=== PATIENT | male | born 1990 | race African-American/Black ===

== ENCOUNTER 2019-12-19 18:06 | Inpatient (IN) | payer OTHER ==
[~2019-12-19] VITALS: Ht 182.9 cm; Wt 68.6 kg
[~2019-12-19 18:06] MED LIST: ALBU6.7H IH
[2019-12-19] MEDS ORDERED: D AM PO (18:35)
[2019-12-19] MEDS ORDERED: ALPR-340 PO (18:35)
[2019-12-19] MEDS ORDERED: ACETAMINOPHEN 325 MG TABLET PO PRN (18:45)
[2019-12-19] MEDS ORDERED: ONDANSETRON HCL 4 MG/2 ML VIAL IVP PRN (18:45)
[2019-12-19 18:52] LABS: BASOPHILS % (AUTO) 0.4 % (0.0-2.0); EOSINOPHILS % (AUTO) 0.6 % (1.0-6.0); HEMATOCRIT 42.4 % (41-53); HEMOGLOBIN 13.9 g/dL (13.5-17.5); LYMPHOCYTES # (AUTO) 1.2 K/uL (1.0-4.8); LYMPHOCYTES % (AUTO) 14.8 % (22.0-44.0); MEAN CORPUSCULAR HEMOGLOBIN 28.2 pg (26.0-34.0); MEAN CORPUSCULAR HGB CONC 32.8 G/dL (31.0-37.0); MEAN CORPUSCULAR VOLUME 86 fL (80-100); MONOCYTES # (AUTO) 0.5 K/uL (0.1-1.0); MONOCYTES % (AUTO) 6.1 % (2.0-9.0); NEUTROPHILS # (AUTO) 6.1 K/uL (1.8-7.7); NEUTROPHILS % (AUTO) 78.1 % (40.0-70.0); PLATELET COUNT (AUTO) 279 K/uL (150-450); RED BLOOD CELL COUNT(AUTO) 4.93 MIL/uL (4.50-5.90); RED CELL DISTRIBUTION WIDTH 12.9 % (11.5-14.5)
[2019-12-19 19:01] LABS: ANION GAP 7 mmol/L (8-16); CALCIUM, TOTAL 9.2 mg/dL (8.8-10.5); CARBON DIOXIDE 30 mmol/L (22-29); CHLORIDE 102 mmol/L (98-107); CREATININE 0.95 mg/dL (0.60-1.30); GLOMERULAR FILTR. RATE CALC > 60 mL/min (>60); GLUCOSE,RANDOM 87 mg/dL (70-110); POTASSIUM 4.4 mmol/L (3.5-5.1); SODIUM SERUM 139 mmol/L (136-145); UREA NITROGEN, BLOOD 12 mg/dL (7-18)
[2019-12-19 19:12] LABS: ALANINE AMINOTRANSFERASE 18 U/L (12-78); ALBUMIN 4.2 g/dL (3.4-5.0); ALKALINE PHOSPHATASE 73 U/L (46-116); ASPARTATE AMINOTRANSFERASE 14 U/L (15-37); BILIRUBIN,TOTAL 0.3 mg/dL (0.1-1.0); TOTAL PROTEIN, SERUM 7.7 g/dL (6.4-8.2)
[2019-12-19 20:03] LABS: AMPHET/METH SCREEN,URINE NEGATIVE (NEGATIVE); BARBITURATE SCREEN, URINE NEGATIVE (NEGATIVE); BENZODIAZEPINES SCREEN,URINE POSITIVE (NEGATIVE); CANNABINOID SCREEN,URINE NEGATIVE (NEGATIVE); COCAINE SCREEN,URINE NEGATIVE (NEGATIVE); METHADONE SCREEN, URINE NEGATIVE (NEGATIVE); OPIATE SCREEN,URINE POSITIVE (NEGATIVE)
[2019-12-19 20:04] LABS: PHENCYCLIDINE SCREEN,URINE NEGATIVE (NEGATIVE)
[2019-12-19 20:35] VITALS: BP 103/55
[2019-12-19] MEDS ORDERED: LOPERAMIDE HCL 2 MG CAPSULE PO PRN (23:00)
[2019-12-19] MEDS ORDERED: DICYCLOMINE HCL 10 MG CAPSULE PO PRN (23:00)
[2019-12-19] MEDS ORDERED: METOCLOPRAMIDE HCL 5 MG/ML 2 ML VIAL IVP PRN (23:00)
[2019-12-19] MEDS: CYCLOBENZAPRINE HCL 10 MG TABLET PO PRN (23:43)
[2019-12-20 04:05] VITALS: BP 107/60
[2019-12-20 08:00] VITALS: BP 104/59
[2019-12-20 08:08] VITALS: BP 104/59
[2019-12-20] MEDS ORDERED: ChlordiazePOXIDE HCL 10 MG CAPSULE PO SCH (09:00)
[2019-12-20] MEDS ORDERED: DIAZEPAM 10 MG TABLET PO PRN (11:30)
[2019-12-20 12:00] VITALS: BP 102/56
[2019-12-20] MEDS: CYCLOBENZAPRINE HCL 10 MG TABLET PO PRN (15:14)
[2019-12-20 15:40] VITALS: BP 99/53
[2019-12-20 19:33] VITALS: BP 103/57
[2019-12-20] MEDS: TEMAZEPAM 15 MG CAPSULE PO SCH (21:51)
[2019-12-21 04:39] VITALS: BP 103/58
[2019-12-21] MEDS ORDERED: DIAZEPAM 10 MG TABLET PO PRN (07:00)
[2019-12-21] MEDS ORDERED: DIAZEPAM 10 MG TABLET PO SCH (09:00)
[2019-12-21] MEDS: DIAZEPAM 5 MG TABLET PO PRN ×2 (09:46→21:22)
[2019-12-21 19:34] VITALS: BP 108/52
[2019-12-21 21:20] VITALS: BP 118/68
[2019-12-21] MEDS: ACETAMINOPHEN/CODEINE 300-15 MG TABLET PO PRN (21:22)
[2019-12-21] MEDS: TEMAZEPAM 15 MG CAPSULE PO SCH (21:53)
[2019-12-21 22:20] VITALS: BP 116/68
[2019-12-22 04:43] VITALS: BP 134/86
[2019-12-22 07:52] VITALS: BP 101/55
[2019-12-22] MEDS: DIAZEPAM 5 MG TABLET PO PRN ×2 (08:45→18:41)
[2019-12-22] MEDS: ACETAMINOPHEN/CODEINE 300-15 MG TABLET PO PRN (14:48)
[2019-12-22 15:23] VITALS: BP 102/60
[2019-12-22 20:27] VITALS: BP 103/70
[2019-12-22] MEDS: TEMAZEPAM 15 MG CAPSULE PO SCH (23:10)
[2019-12-23 05:30] VITALS: BP 100/57
[2019-12-23] MEDS ORDERED: DIAZEPAM 5 MG TABLET PO PRN (07:00)
[2019-12-23 07:38] VITALS: BP 115/61
[2019-12-23] MEDS ORDERED: DIAZEPAM 5 MG TABLET PO SCH (09:00)
[2019-12-23 09:23] LABS: BASOPHILS % (AUTO) 0.4 % (0.0-2.0); EOSINOPHILS % (AUTO) 0 % (1.0-6.0); HEMATOCRIT 42.8 % (41-53); HEMOGLOBIN 14.1 g/dL (13.5-17.5); LYMPHOCYTES # (AUTO) 0.8 K/uL (1.0-4.8); LYMPHOCYTES % (AUTO) 11.2 % (22.0-44.0); MEAN CORPUSCULAR HEMOGLOBIN 28.1 pg (26.0-34.0); MEAN CORPUSCULAR HGB CONC 32.9 G/dL (31.0-37.0); MEAN CORPUSCULAR VOLUME 86 fL (80-100); MONOCYTES # (AUTO) 1.2 K/uL (0.1-1.0); MONOCYTES % (AUTO) 17.7 % (2.0-9.0); NEUTROPHILS # (AUTO) 4.9 K/uL (1.8-7.7); NEUTROPHILS % (AUTO) 70.7 % (40.0-70.0); PLATELET COUNT (AUTO) 245 K/uL (150-450); RED BLOOD CELL COUNT(AUTO) 5.01 MIL/uL (4.50-5.90); RED CELL DISTRIBUTION WIDTH 13.1 % (11.5-14.5)
[2019-12-23 09:32] LABS: ANION GAP 12 mmol/L (8-16); CALCIUM, TOTAL 8.7 mg/dL (8.8-10.5); CARBON DIOXIDE 24 mmol/L (22-29); CHLORIDE 110 mmol/L (98-107); CREATININE 0.73 mg/dL (0.60-1.30); GLOMERULAR FILTR. RATE CALC > 60 mL/min (>60); GLUCOSE,RANDOM 91 mg/dL (70-110); SODIUM SERUM 146 mmol/L (136-145); UREA NITROGEN, BLOOD 13 mg/dL (7-18)
[2019-12-23] MEDS: ACETAMINOPHEN/CODEINE 300-15 MG TABLET PO PRN ×2 (11:47→19:43)
[2019-12-23] MEDS: DIAZEPAM 5 MG TABLET PO PRN ×2 (14:32→21:49)
[2019-12-23 14:55] VITALS: BP 119/72
[2019-12-23 19:34] VITALS: BP 122/75
[2019-12-23] MEDS: TEMAZEPAM 15 MG CAPSULE PO SCH (19:39)
[2019-12-23 21:20] VITALS: BP 102/72
[2019-12-23] MEDS ORDERED: ACETAMINOPHEN 325 MG TABLET PO PRN (21:45)
[2019-12-23] MEDS ORDERED: BACLOFEN 10 MG TABLET PO ONE (22:00)
[2019-12-23] MEDS ORDERED: AMOX TR/POT CLAV 875 MG/125 MG TABLET PO SCH (22:00)
[2019-12-23 22:09] LABS: BASOPHILS % (AUTO) 0.3 % (0.0-2.0); EOSINOPHILS % (AUTO) 0 % (1.0-6.0); HEMOGLOBIN 14.3 g/dL (13.5-17.5); LYMPHOCYTES # (AUTO) 1.3 K/uL (1.0-4.8); LYMPHOCYTES % (AUTO) 15.1 % (22.0-44.0); MEAN CORPUSCULAR HEMOGLOBIN 29.1 pg (26.0-34.0); MEAN CORPUSCULAR HGB CONC 34.1 G/dL (31.0-37.0); MEAN CORPUSCULAR VOLUME 85 fL (80-100); MONOCYTES # (AUTO) 1.6 K/uL (0.1-1.0); NEUTROPHILS # (AUTO) 5.8 K/uL (1.8-7.7); NEUTROPHILS % (AUTO) 66.6 % (40.0-70.0); PLATELET COUNT (AUTO) 255 K/uL (150-450); RED BLOOD CELL COUNT(AUTO) 4.92 MIL/uL (4.50-5.90); RED CELL DISTRIBUTION WIDTH 13.1 % (11.5-14.5)
[2019-12-23 22:15] LABS: ANION GAP 11 mmol/L (8-16); CALCIUM, TOTAL 8.6 mg/dL (8.8-10.5); CARBON DIOXIDE 24 mmol/L (22-29); CHLORIDE 103 mmol/L (98-107); CREATININE 1.09 mg/dL (0.60-1.30); GLOMERULAR FILTR. RATE CALC > 60 mL/min (>60); GLUCOSE,RANDOM 104 mg/dL (70-110); POTASSIUM 3.5 mmol/L (3.5-5.1); SODIUM SERUM 138 mmol/L (136-145); UREA NITROGEN, BLOOD 15 mg/dL (7-18)
[2019-12-23] MEDS ORDERED: SODIUM CHLORIDE 0.9% 500 ML IV ONE (22:51)
[2019-12-23] MEDS: CefTRIAXone 1 GM/DEXTROSE 50 ML IV SCH (23:05)
[2019-12-24] VITALS (7 sets, daily range): BP systolic 103–121; BP diastolic 65–78
[2019-12-24] MEDS: ACETAMINOPHEN/CODEINE 300-15 MG TABLET PO PRN ×3 (03:23→20:39)
[2019-12-24] MEDS ORDERED: DIAZEPAM 5 MG TABLET PO PRN (07:00)
[2019-12-24 08:14] LABS: APPEARANCE,URINE CLEAR (CLEAR); BILIRUBIN,URINE NEGATIVE (NEGATIVE); GLUCOSE, URINE (UA) NEGATIVE (NEGATIVE); KETONES,URINE NEGATIVE (NEGATIVE); LEUKOCYTE ESTERASE ,URINE NEGATIVE (NEGATIVE); NITRATE,URINE NEGATIVE (NEGATIVE); OCCULT BLOOD,URINE NEGATIVE (NEGATIVE); PROTEIN,URINE NEGATIVE (NEGATIVE); UROBILINOGEN,URINE 0.2 mg/dL (<=1.0)
[2019-12-24 08:26] LABS: BACTERIA,URINE None Seen /HPF (None Seen); RBC,URINE None Seen /HPF (0-2); WBC,URINE None Seen /HPF (0-5)
[2019-12-24] MEDS: DIAZEPAM 5 MG TABLET PO PRN ×2 (16:33→20:39)
[2019-12-24] MEDS: CefTRIAXone 1 GM/DEXTROSE 50 ML IV SCH (22:21)
[2019-12-24] MEDS: TEMAZEPAM 15 MG CAPSULE PO SCH (22:21)
[2019-12-24] MEDS ORDERED: SODIUM CHLORIDE 0.9% 250 ML IV ONE (22:36)
[2019-12-25 03:10] VITALS: BP 116/74
[2019-12-25] MEDS: ACETAMINOPHEN/CODEINE 300-15 MG TABLET PO PRN (03:10)
[2019-12-25 04:10] VITALS: BP 110/72
[2019-12-25] MEDS: DIAZEPAM 5 MG TABLET PO PRN ×2 (06:19→06:25)
[2019-12-25 07:20] LABS: BASOPHILS % (AUTO) 0.4 % (0.0-2.0); EOSINOPHILS % (AUTO) 0.6 % (1.0-6.0); HEMATOCRIT 44.6 % (41-53); HEMOGLOBIN 14.7 g/dL (13.5-17.5); LYMPHOCYTES % (AUTO) 17.1 % (22.0-44.0); MEAN CORPUSCULAR HEMOGLOBIN 28.2 pg (26.0-34.0); MEAN CORPUSCULAR VOLUME 85 fL (80-100); MONOCYTES # (AUTO) 0.8 K/uL (0.1-1.0); MONOCYTES % (AUTO) 14.8 % (2.0-9.0); NEUTROPHILS # (AUTO) 3.7 K/uL (1.8-7.7); NEUTROPHILS % (AUTO) 67.1 % (40.0-70.0); PLATELET COUNT (AUTO) 262 K/uL (150-450); RED BLOOD CELL COUNT(AUTO) 5.23 MIL/uL (4.50-5.90); RED CELL DISTRIBUTION WIDTH 12.8 % (11.5-14.5)
[2019-12-25 07:23] VITALS: BP 115/54
== END 2019-12-25 09:52 | DRG 896 ==
LOC: EMS 18:06 → 6S 18:45
PROVIDERS: ADMIT Internal Medicine; ATTEND Internal Medicine
DX: F13.239 Sedative, hypnotic or anxiolytic dependence with withdrawal, unspecified (principal); E43 Unspecified severe protein-calorie malnutrition; F13.20 Sedative, hypnotic or anxiolytic dependence, uncomplicated; J45.909 Unspecified asthma, uncomplicated; F90.9 Attention-deficit hyperactivity disorder, unspecified type; F11.23 Opioid dependence with withdrawal; F41.1 Generalized anxiety disorder; G89.29 Other chronic pain; Z91.19 Patient's noncompliance with other medical treatment and regimen; Z79.899 Other long term (current) drug therapy
CPT/HCPCS: 87040; J0696; J7040; J7050